=== PATIENT | female | born 1985 | race African-American/Black ===

== ENCOUNTER 2016-06-06 13:11 | Emergency (ER) | payer OTHER ==
[2016-06-06 14:18] VITALS: TEMP 97.3
[2016-06-06] MEDS ORDERED: DICYCLOMINE 10 MG/ML 2 ML AMP IM STA (15:06)
[2016-06-06] MEDS ORDERED: METOCLOPRAMIDE 5 MG/ML 2 ML VIAL IVP STA (15:06)
[2016-06-06] MEDS ORDERED: SODIUM CHLORIDE 0.9% 1,000 ML IV STA (15:06)
--- NOTE | 2016-06-06 15:12 | ED ---
Abdominal Pain HPI - General Chief Complaint: Abdominal Pain Stated Complaint: chest & back pain Time Seen by Provider: 06/06/16 15:00 Source: patient, RN notes reviewed Mode of arrival: ambulatory Limitations: no limitations - History of Present Illness Initial Comments: 30-year-old female presents to the emergency department with a chief complaint of right upper quadrant abdominal pain. Patient states that she has had this pain on and off for multiple months. Patient states that last night she started developing nausea vomiting with the pain is worse than his abdomen before it wraps around her back and up to her shoulder. Patient denies any shortness of breath or chest pain with this pain. Patient states she did have a low-grade fever last night. Patient does admit to nausea vomiting and diarrhea with it as well. Patient states she's only ever been told she had gallstones she's never had an infection. Patient states they've not discussed any surgery with her for her gallbladder at this time. Patient states she was concerned due to the continued pain so she thought that she should be evaluated. Patient denies any recent fever, chills, shortness of breath, chest pain, back pain, numbness or tingling, dysuria or hematuria, constipation, headaches or visual changes, or any other current symptoms. - Related Data Previous Rx's Medication Instructions Recorded Ondansetron Odt [Zofran ODT] 4 mg PO Q8HR PRN #20 tab 06/06/16 Allergies Allergy/AdvReac Type Severity Reaction Status Date / Time No Known Allergies Allergy Verified 06/06/16 15:54 Review of Systems ROS Statement: Those systems with pertinent positive or pertinent negative responses have been documented in the HPI. ROS Other: All systems not noted in ROS Statement are negative. Past Medical History Past Medical History: Asthma, GERD/Reflux, Pneumonia Additional Past Medical History / Comment(s): Chronic back pain , depression, ASTHMA WHEN YOUNGER, BRONCHITIS, HYPOGLYEMIA,DDD, BLEEDING ULCER IN PAST History of Any Multi-Drug Resistant Organisms: None Reported Past Surgical History: Appendectomy, Section Additional Past Surgical History / Comment(s): Additional Past Anesthesia/Blood Transfusion Reaction / Comment(s): CLAUSTERPHOBIC Past Psychological History: Anxiety, Depression Smoking Status: Current every day smoker Past Alcohol Use History: Rare Additional Past Alcohol Use History / Comment(s): STARTED SMOKING AT 26, SMOKES 6-7 CIG PER DAY Past Drug Use History: None Reported, Marijuana Additional Drug Use History / Comment(s): LAST USED 1 WEEK AGO - Past Family History Father Family Medical History: Unable to Obtain Mother Family Medical History: Fibromyalgia, Rheumatoid Arthritis (RA) Additional Family Medical History / Comment(s): DDD, CARPAL TUNNEL. PARATYROID REMOVED General Exam - General Exam Comments Initial Comments: General: The patient is awake and alert, in no distress, and does not appear acutely ill. Eye: Pupils are equal, round and reactive to light, extra-ocular movements are intact; there is normal conjunctiva bilaterally. No signs of icterus. Ears, nose, mouth and throat: There are moist mucous membranes. Neck: The neck is supple, there is no tenderness. Cardiovascular: There is a regular rate and rhythm. No murmur, rub or gallop is appreciated. Respiratory: Lungs are clear to auscultation, respirations are non-labored, breath sounds are equal. No wheezes, stridor, rales, or rhonchi. Gastrointestinal: Soft, non-distended, right upper quadrant tenderness of the abdomen without masses or organomegaly noted. There is no rebound or guarding present. No CVA tenderness. Bowel sounds are unremarkable. Back: There is no tenderness to palpation in the midline. There is no obvious deformity. No rashes noted. Musculoskeletal: Normal ROM, no tenderness, There is no pedal edema. There is no calf tenderness or swelling. Sensation intact. Pulses equal bilaterally 2+. Neurological: CN II-XII intact, There are no obvious motor or sensory deficits. Coordination appears grossly intact. Speech is normal. Skin: Skin is warm and dry and no rashes or lesions are noted. Psychiatric: Cooperative, appropriate mood & affect, normal judgment. Limitations: no limitations Course Vital Signs 06/06/16 06/06/16 14:15 15:12 Temperature 97.3 F L Pulse Rate 86 72 Respiratory 18 15 Rate Blood Pressure 121/73 117/64 O2 Sat by Pulse 98 100 Oximetry Medical Decision Making - Medical Decision Making 30-year-old female presents emergency department chief complaint of right upper quadrant abdominal pain which she has had on and off for years. At this time ultrasound was reviewed as well as laboratory that shows no acute findings. This time patient is tender in the upper quadrant however there is no rebound or guarding. We discussed continued follow-up with her surgeon who she states is Dr. Hardy. We discussed using Zofran as prescribed for pain.. We discussed return parameters. Patient stated that she understood all her questions have been answered. She'll be discharged. - Lab Data Result diagrams: 06/06/16 15:25 06/06/16 15:25 Lab Results 06/06/16 06/06/16 06/06/16 Range/Units 15:25 15:25 15:25 WBC 7.4 (3.8-10.6) k/uL RBC 4.71 (3.80-5.40) m/uL Hgb 13.5 (11.4-16.0) gm/dL Hct 43.1 (34.0-46.0) % MCV 91.6 (80.0-100.0) fL MCH 28.7 (25.0-35.0) pg MCHC 31.4 (31.0-37.0) g/dL RDW 14.6 (11.5-15.5) % Plt Count 213 (150-450) k/uL Neutrophils % 49 % Lymphocytes % 42 % Monocytes % 6 % Eosinophils % 2 % Basophils % 0 % Neutrophils # 3.6 (1.3-7.7) k/uL Lymphocytes # 3.1 (1.0-4.8) k/uL Monocytes # 0.4 (0-1.0) k/uL Eosinophils # 0.1 (0-0.7) k/uL Basophils # 0.0 (0-0.2) k/uL Sodium 143 (137-145) mmol/L Potassium 4.7 (3.5-5.1) mmol/L Chloride 103 (98-107) mmol/L Carbon Dioxide 29 (22-30) mmol/L Anion Gap 11 mmol/L BUN 13 (7-17) mg/dL Creatinine 0.67 (0.52-1.04) mg/dL Est GFR (MDRD) Af Amer >60 (>60 ml/min/1.73 sqM) Est GFR (MDRD) Non-Af >60 (>60 ml/min/1.73 sqM) Glucose 84 (74-99) mg/dL Calcium 9.6 (8.4-10.2) mg/dL Total Bilirubin 0.5 (0.2-1.3) mg/dL AST 37 H (14-36) U/L ALT 37 (9-52) U/L Alkaline Phosphatase 83 (38-126) U/L Total Protein 7.5 (6.3-8.2) g/dL Albumin 4.2 (3.5-5.0) g/dL Urine Color Urine Appearance (Clear) Urine pH (5.0-8.0) Ur Specific [place] (1.001-1.035) Urine Protein (Negative) Urine Glucose (UA) (Negative) Urine Ketones (Negative) Urine Blood (Negative) Urine Nitrate (Negative) Urine Bilirubin (Negative) Urine Urobilinogen (<2.0) mg/dL Ur Leukocyte Esterase (Negative) Urine HCG, Qual Not Detected (Not Detectd) 06/06/16 Range/Units 15:25 WBC (3.8-10.6) k/uL RBC (3.80-5.40) m/uL Hgb (11.4-16.0) gm/dL Hct (34.0-46.0) % MCV (80.0-100.0) fL MCH (25.0-35.0) pg MCHC (31.0-37.0) g/dL RDW (11.5-15.5) % Plt Count (150-450) k/uL Neutrophils % % Lymphocytes % % Monocytes % % Eosinophils % % Basophils % % Neutrophils # (1.3-7.7) k/uL Lymphocytes # (1.0-4.8) k/uL Monocytes # (0-1.0) k/uL Eosinophils # (0-0.7) k/uL Basophils # (0-0.2) k/uL Sodium (137-145) mmol/L Potassium (3.5-5.1) mmol/L Chloride (98-107) mmol/L Carbon Dioxide (22-30) mmol/L Anion Gap mmol/L BUN (7-17) mg/dL Creatinine (0.52-1.04) mg/dL Est GFR (MDRD) Af Amer (>60 ml/min/1.73 sqM) Est GFR (MDRD) Non-Af (>60 ml/min/1.73 sqM) Glucose (74-99) mg/dL Calcium (8.4-10.2) mg/dL Total Bilirubin (0.2-1.3) mg/dL AST (14-36) U/L ALT (9-52) U/L Alkaline Phosphatase (38-126) U/L Total Protein (6.3-8.2) g/dL Albumin (3.5-5.0) g/dL Urine Color Yellow Urine Appearance Clear (Clear) Urine pH 5.5 (5.0-8.0) Ur Specific [place] 1.020 (1.001-1.035) Urine Protein Negative (Negative) Urine Glucose (UA) Negative (Negative) Urine Ketones Negative (Negative) Urine Blood Negative (Negative) Urine Nitrate Negative (Negative) Urine Bilirubin Negative (Negative) Urine Urobilinogen <2.0 (<2.0) mg/dL Ur Leukocyte Esterase Negative (Negative) Urine HCG, Qual (Not Detectd) - Radiology Data Radiology results: report reviewed, image reviewed Disposition Clinical Impression: Biliary colic Disposition: HOME SELF-CARE Condition: Stable Instructions: Biliary Colic (ED) Additional Instructions: Please use medication as discussed. Please follow up with family doctor if symptoms have not improved over the next two days. Please return to the emergency room if your symptoms increase or worsen or for any other concerns. Prescriptions: Ondansetron Odt [Zofran ODT] 4 mg PO Q8HR PRN #20 tab PRN Reason: Nausea Referrals: Kadi Hart MD [STAFF PHYSICIAN] - 1-2 days Time of Disposition: 16:44
[2016-06-06 15:47] LABS: Appearance,Urine Clear (Clear); Basophils % (A) 0 %; Bilirubin,Urine Negative (Negative); CH 29.8; CHCM 32.7; Eosinophils # (A) 0.1 k/uL (0-0.7); Eosinophils % (A) 2 %; Glucose,Urine (UA) Negative (Negative); HCT 43.1 % (34.0-46.0); HDW 2.04; HGB 13.5 gm/dL (11.4-16.0); Ketones,Urine Negative (Negative); Leukocyte Esterase,Urine Negative (Negative); Luc # (Auto) 0.11; Luc % (Auto) 2; Lymphocytes # (A) 3.1 k/uL (1.0-4.8); Lymphocytes % (A) 42 %; MCH 28.7 pg (25.0-35.0); MCHC 31.4 g/dL (31.0-37.0); MCV 91.6 fL (80.0-100.0); Mean Platelet Volume 8.8; Monocytes # (A) 0.4 k/uL (0-1.0); Monocytes % (A) 6 %; Neutrophils # (A) 3.6 k/uL (1.3-7.7); Neutrophils % (A) 49 %; Nitrite,Urine Negative (Negative); PH, Urine 5.5 (5.0-8.0); Protein,Urine Negative (Negative); RBC 4.71 m/uL (3.80-5.40); RDW 14.6 % (11.5-15.5); UA Billing (MACRO vs. MICRO) CHEM; Urobilinogen,Urine <2.0 mg/dL (<2.0); WBC 7.4 k/uL (3.8-10.6); WBC (Perox) 7.28
--- NOTE | 2016-06-06 15:48 | XR ---
EXAMINATION TYPE: XR abdomen 2V DATE OF EXAM: 06/06/2016 3:44 PM CLINICAL HISTORY: Right-sided abdominal pain with vomiting. TECHNIQUE: Supine and upright views of the abdomen are obtained. COMPARISON: CT abdomen and pelvis July 23, 2014 FINDINGS: Scattered gas is seen in non-distended small bowel loops. Gas and fecal material is seen in non-distended colon and rectum. Surgical clips right lower quadrant likely related to appendectomy are redemonstrated. Metallic IUD overlies the lower pelvis. Spina bifida defect S1 level is present. No pneumoperitoneum is identified. Lung bases are clear. IMPRESSION: Overall nonobstructive bowel gas pattern.
[2016-06-06 16:02] LABS: AST 37 U/L (14-36); Alkaline Phosphatase 83 U/L (38-126); Anion Gap 11 mmol/L; Blood Urea Nitrogen 13 mg/dL (7-17); Calcium 9.6 mg/dL (8.4-10.2); Carbon Dioxide 29 mmol/L (22-30); Chloride 103 mmol/L (98-107); Glucose 84 mg/dL (74-99); Non-African American GFR(MDRD) >60 (>60 ml/min/1.73 sqM); Potassium 4.7 mmol/L (3.5-5.1); Sodium 143 mmol/L (137-145); Total Bilirubin 0.5 mg/dL (0.2-1.3); Total Protein 7.5 g/dL (6.3-8.2)
[2016-06-06 16:08] LABS: ALT 37 U/L (9-52)
--- NOTE | 2016-06-06 16:36 | US ---
EXAMINATION TYPE: US gallbladder DATE OF EXAM: 06/06/2016 4:21 PM COMPARISON: 07/01/2014 CLINICAL HISTORY: 30-year-old female history is confusing, she states she had with gallbladder stones here 2 years ago and recently at [facility] [place] they [place] gb stone but supposedly Dr Kadi tomlinson can find no record of scan at other facility. Abdominal pain. TECHNIQUE: Multiple sonographic images of the right upper quadrant were obtained. FINDINGS: TECHNOLOGIST NOTES:large body habitus with overlying bowel gas. Liver Length: 15.8cm Gallbladder Wall: 0.3cm CBD: 0.5cm Right Kidney: 9.6 x 4.6 x 4.9cm Pancreas: Suboptimal visualization secondary to shadowing from bowel gas. Liver: Attenuating, possibly due to fatty infiltration. This secondarily limits assessment for focal lesion. Gallbladder: No abnormal gallbladder distention, wall thickening, pericholecystic fluid, or shadowin g calculi. Evidence for sonographic Trevino's sign: yes CBD: Within normal limits. Right Kidney: No hydronephrosis. IMPRESSION: 1. No evidence for cholelithiasis or ancillary imaging findings to suggest acute cholecystitis. 2. However, we note a positive sonographic Trevino sign. If further imaging evaluation of the gallblad daniel is desired, HIDA scan with ejection fraction can be performed. 3. Otherwise, the positive Trevino's sign could reflect referred pain such as from the liver which bel ears steatotic. Correlate with LFTs, lipid profile, and patient risk factors.
[2016-06-06] MEDS ORDERED: KETOROLAC 30 MG/ML 1 ML VIAL IVP STA (16:44)
[2016-06-06 17:11] VITALS: BP 110/61; PULSE 88; RESP 18
== END 2016-06-06 17:10 | disposition home or self-care (01) ==
LOC: EC 13:11
DX: R10.84 Generalized abdominal pain (principal); F17.210 Nicotine dependence, cigarettes, uncomplicated
CPT/HCPCS: 99284; 96372; 96361 ×2; 96375; 96374; 36415; 93005; 80053; 85025; 81003; 81025; 87040; 74020; 76705; J0500; J2765; J1885

== ENCOUNTER 2016-08-15 07:36 | Emergency (ER) | payer OTHER ==
[2016-08-15] MEDS ORDERED: HYDROmorphone 1 MG/ML 1 ML SYRINGE IVP STA ×2 (08:35→09:29)
[2016-08-15] MEDS ORDERED: ONDANSETRON 4 MG/2 ML VIAL IVP STA ×2 (08:35→09:29)
[2016-08-15 08:39] LABS: Appearance,Urine Clear (Clear); Bilirubin,Urine Negative (Negative); Glucose,Urine (UA) Negative (Negative); Ketones,Urine Negative (Negative); Leukocyte Esterase,Urine Negative (Negative); Nitrite,Urine Negative (Negative); PH, Urine 5.5 (5.0-8.0); Protein,Urine Trace (Negative); Specific Gravity,Urine 1.024 (1.001-1.035); UA Billing (MACRO vs. MICRO) CHEM; Urobilinogen,Urine <2.0 mg/dL (<2.0)
[2016-08-15 08:40] LABS: Basophils % (A) 0 %; CH 29.8; Eosinophils # (A) 0.1 k/uL (0-0.7); Eosinophils % (A) 1 %; HCT 47.6 % (34.0-46.0); HDW 2.01; HGB 15.1 gm/dL (11.4-16.0); Luc # (Auto) 0.08; Luc % (Auto) 1; Lymphocytes # (A) 1.3 k/uL (1.0-4.8); Lymphocytes % (A) 12 %; MCH 29.6 pg (25.0-35.0); MCHC 31.8 g/dL (31.0-37.0); MCV 93.3 fL (80.0-100.0); Mean Platelet Volume 8.9; Monocytes # (A) 0.4 k/uL (0-1.0); Monocytes % (A) 4 %; Neutrophils # (A) 9.1 k/uL (1.3-7.7); Neutrophils % (A) 83 %; RDW 13.8 % (11.5-15.5)
--- NOTE | 2016-08-15 08:41 | ED ---
Nausea/Vomiting/Diarrhea HPI - General Chief complaint: Nausea/Vomiting/Diarrhea Stated complaint: vomiting Time Seen by Provider: 08/15/16 08:10 Source: patient, RN notes reviewed Mode of arrival: ambulatory Limitations: no limitations - History of Present Illness Initial comments: Patient is a 30-year-old female presents to the emergency room for evaluation of abdominal pain, nausea and vomiting. Patient states she woke up at 4:30 this morning with abdominal pain and vomiting. Patient states she hasn't been able to stop since. Patient states over the past 3 weeks she's not been having much of an appetite. Patient denies following up with her primary care provider. Patient states she is not a primary care provider at this time. Patient states that she has a history of section and appendectomy. Patient states back in April she went to [facility] and they told her that she had gallstones. Patient states that she follow up with Dr. Bolivar and they did not find any gallstones. Patient states pain worsened today. Patient also states she had a few episodes of diarrhea this morning. Patient denies fevers or chills. Patient denies headache or dizziness. Patient denies chest pain or shortness of breath. Patient states she's feeling very nauseous. - Related Data Previous Rx's Medication Instructions Recorded Ondansetron Odt [Zofran Odt] 4 mg PO Q8HR PRN #12 tab 08/15/16 Allergies Allergy/AdvReac Type Severity Reaction Status Date / Time morphine AdvReac Nausea & Verified 08/15/16 08:10 Vomiting Review of Systems ROS Statement: Those systems with pertinent positive or pertinent negative responses have been documented in the HPI. ROS Other: All systems not noted in ROS Statement are negative. Past Medical History Past Medical History: Asthma, GERD/Reflux, Pneumonia Additional Past Medical History / Comment(s): Chronic back pain , depression, ASTHMA WHEN YOUNGER, BRONCHITIS, HYPOGLYEMIA,DDD, BLEEDING ULCER IN PAST History of Any Multi-Drug Resistant Organisms: None Reported Past Surgical History: Appendectomy, Section Additional Past Surgical History / Comment(s): Additional Past Anesthesia/Blood Transfusion Reaction / Comment(s): CLAUSTERPHOBIC Past Psychological History: Anxiety, Depression Smoking Status: Current every day smoker Past Alcohol Use History: Rare Additional Past Alcohol Use History / Comment(s): STARTED SMOKING AT 26, SMOKES 6-7 CIG PER DAY Past Drug Use History: None Reported, Marijuana Additional Drug Use History / Comment(s): LAST USED 1 WEEK AGO - Past Family History Father Family Medical History: Unable to Obtain Mother Family Medical History: Fibromyalgia, Rheumatoid Arthritis (RA) Additional Family Medical History / Comment(s): DDD, CARPAL TUNNEL. PARATYROID REMOVED General Exam - General Exam Comments Initial Comments: Actively vomiting. Limitations: no limitations General appearance: alert Head exam: Present: atraumatic, normocephalic, normal inspection Eye exam: Present: normal appearance ENT exam: Present: normal exam Neck exam: Present: normal inspection Respiratory exam: Present: normal lung sounds bilaterally. Absent: respiratory distress Cardiovascular Exam: Present: regular rate, normal rhythm, normal heart sounds GI/Abdominal exam: Present: soft, tenderness (Upper midepigastric and right upper quadrant), normal bowel sounds. Absent: distended, guarding, rebound, rigid Extremities exam: Present: normal inspection Back exam: Present: normal inspection Neurological exam: Present: alert, oriented X3, CN II-XII intact, normal gait Psychiatric exam: Present: normal affect, normal mood Skin exam: Present: warm, dry, intact, normal color. Absent: rash Course Vital Signs 08/15/16 08/15/16 07:41 11:48 Temperature 98.5 F 98 F Pulse Rate 80 81 Respiratory 20 16 Rate Blood Pressure 123/67 128/78 O2 Sat by Pulse 98 98 Oximetry Medical Decision Making - Medical Decision Making Patient is a 30-year-old female presents emergency room for evaluation of abdominal pain, nausea, vomiting. White count slightly elevated. Labs show no significant findings. Ultrasound shows no acute findings. Patient states she is feeling better after medications given. Discussed patient to follow up GI specialist for further evaluation. Patient states she understands everything that was discussed with her. Return parameters discussed. Case discussed with Dr. Jorge. - Lab Data Result diagrams: 08/15/16 08:05 08/15/16 08:05 Lab Results 08/15/16 08/15/16 08/15/16 Range/Units 08:05 08:05 08:05 WBC 11.0 H (3.8-10.6) k/uL RBC 5.10 (3.80-5.40) m/uL Hgb 15.1 (11.4-16.0) gm/dL Hct 47.6 H (34.0-46.0) % MCV 93.3 (80.0-100.0) fL MCH 29.6 (25.0-35.0) pg MCHC 31.8 (31.0-37.0) g/dL RDW 13.8 (11.5-15.5) % Plt Count 217 (150-450) k/uL Neutrophils % 83 % Lymphocytes % 12 % Monocytes % 4 % Eosinophils % 1 % Basophils % 0 % Neutrophils # 9.1 H (1.3-7.7) k/uL Lymphocytes # 1.3 (1.0-4.8) k/uL Monocytes # 0.4 (0-1.0) k/uL Eosinophils # 0.1 (0-0.7) k/uL Basophils # 0.0 (0-0.2) k/uL Sodium 143 (137-145) mmol/L Potassium 4.6 (3.5-5.1) mmol/L Chloride 105 (98-107) mmol/L Carbon Dioxide 28 (22-30) mmol/L Anion Gap 10 mmol/L BUN 16 (7-17) mg/dL Creatinine 0.65 (0.52-1.04) mg/dL Est GFR (MDRD) Af Amer >60 (>60 ml/min/1.73 sqM) Est GFR (MDRD) Non-Af >60 (>60 ml/min/1.73 sqM) Glucose 90 (74-99) mg/dL Calcium 9.5 (8.4-10.2) mg/dL Magnesium 1.7 (1.6-2.3) mg/dL Total Bilirubin 0.8 (0.2-1.3) mg/dL AST 40 H (14-36) U/L ALT 36 (9-52) U/L Alkaline Phosphatase 82 (38-126) U/L Total Protein 7.8 (6.3-8.2) g/dL Albumin 4.3 (3.5-5.0) g/dL Amylase 115 H (30-110) U/L Lipase 124 (23-300) U/L Urine Color Urine Appearance (Clear) Urine pH (5.0-8.0) Ur Specific [place] (1.001-1.035) Urine Protein (Negative) Urine Glucose (UA) (Negative) Urine Ketones (Negative) Urine Blood (Negative) Urine Nitrite (Negative) Urine Bilirubin (Negative) Urine Urobilinogen (<2.0) mg/dL Ur Leukocyte Esterase (Negative) Urine HCG, Qual Not Detected (Not Detectd) 08/15/16 Range/Units 08:05 WBC (3.8-10.6) k/uL RBC (3.80-5.40) m/uL Hgb (11.4-16.0) gm/dL Hct (34.0-46.0) % MCV (80.0-100.0) fL MCH (25.0-35.0) pg MCHC (31.0-37.0) g/dL RDW (11.5-15.5) % Plt Count (150-450) k/uL Neutrophils % % Lymphocytes % % Monocytes % % Eosinophils % % Basophils % % Neutrophils # (1.3-7.7) k/uL Lymphocytes # (1.0-4.8) k/uL Monocytes # (0-1.0) k/uL Eosinophils # (0-0.7) k/uL Basophils # (0-0.2) k/uL Sodium (137-145) mmol/L Potassium (3.5-5.1) mmol/L Chloride (98-107) mmol/L Carbon Dioxide (22-30) mmol/L Anion Gap mmol/L BUN (7-17) mg/dL Creatinine (0.52-1.04) mg/dL Est GFR (MDRD) Af Amer (>60 ml/min/1.73 sqM) Est GFR (MDRD) Non-Af (>60 ml/min/1.73 sqM) Glucose (74-99) mg/dL Calcium (8.4-10.2) mg/dL Magnesium (1.6-2.3) mg/dL Total Bilirubin (0.2-1.3) mg/dL AST (14-36) U/L ALT (9-52) U/L Alkaline Phosphatase (38-126) U/L Total Protein (6.3-8.2) g/dL Albumin (3.5-5.0) g/dL Amylase (30-110) U/L Lipase (23-300) U/L Urine Color Yellow Urine Appearance Clear (Clear) Urine pH 5.5 (5.0-8.0) Ur Specific [place] 1.024 (1.001-1.035) Urine Protein Trace H (Negative) Urine Glucose (UA) Negative (Negative) Urine Ketones Negative (Negative) Urine Blood Negative (Negative) Urine Nitrite Negative (Negative) Urine Bilirubin Negative (Negative) Urine Urobilinogen <2.0 (<2.0) mg/dL Ur Leukocyte Esterase Negative (Negative) Urine HCG, Qual (Not Detectd) - Radiology Data Radiology results: report reviewed, image reviewed Disposition Clinical Impression: Abdominal pain, Nausea vomiting and diarrhea Disposition: HOME SELF-CARE Condition: Good Instructions: Acute Nausea and Vomiting (ED) Additional Instructions: Take Zofran as needed for nausea. Drink plenty of fluids. Please follow up with primary care provider in 1-2 days. If any new symptom arises or symptoms worsen, return to ER as soon as possible. Prescriptions: Ondansetron Odt [Zofran Odt] 4 mg PO Q8HR PRN #12 tab PRN Reason: Nausea Referrals: None,Stated [Primary Care Provider] - 1-2 days Reina Vadlez MD [STAFF PHYSICIAN] - 1-2 days Time of Disposition: 11:36
[2016-08-15 08:53] LABS: ALT 36 U/L (9-52); AST 40 U/L (14-36); Alkaline Phosphatase 82 U/L (38-126); Amylase 115 U/L (30-110); Anion Gap 10 mmol/L; Blood Urea Nitrogen 16 mg/dL (7-17); Calcium 9.5 mg/dL (8.4-10.2); Carbon Dioxide 28 mmol/L (22-30); Chloride 105 mmol/L (98-107); Glucose 90 mg/dL (74-99); Magnesium 1.7 mg/dL (1.6-2.3); Non-African American GFR(MDRD) >60 (>60 ml/min/1.73 sqM); Potassium 4.6 mmol/L (3.5-5.1); Sodium 143 mmol/L (137-145); Total Bilirubin 0.8 mg/dL (0.2-1.3); Total Protein 7.8 g/dL (6.3-8.2)
[2016-08-15] MEDS ORDERED: SODIUM CHLORIDE 0.9% 1,000 ML IV ONE (09:29)
[2016-08-15] MEDS ORDERED: KETOROLAC 30 MG/ML 1 ML VIAL IVP STA (09:29)
--- NOTE | 2016-08-15 10:12 | US ---
EXAMINATION TYPE: US abdomen limited DATE OF EXAM: 08/15/2016 10:04 AM COMPARISON: NONE CLINICAL HISTORY: Pain. epigastric pain, patient believes she has gallstones from an US at another in [facility]. EXAM MEASUREMENTS: Liver Length: 13.8 cm Gallbladder Wall: 0.2 cm CBD: 0.2 cm Right Kidney: 11.4 x 5.1 x 5.6 cm Pancreas: visualized portions wnl Liver: wnl Gallbladder: No stones seen Evidence for sonographic Trevino's sign: Yes CBD: wnl Right Kidney: No hydronephrosis or masses seen IMPRESSION: No distinct abnormality appreciated.
[2016-08-15] MEDS ORDERED: METOCLOPRAMIDE 5 MG/ML 2 ML VIAL IVP STA (10:43)
[2016-08-15] MEDS ORDERED: ACETAMINOPHEN IV (For NPO) 1,000 MG in EMPTY BAG 1 BAG IVPB STA (10:43)
--- NOTE | 2016-08-15 10:49 | XR ---
EXAMINATION TYPE: XR KUB DATE OF EXAM: 08/15/2016 10:39 AM COMPARISON: 7-15 HISTORY: Pain TECHNIQUE: Single supine KUB image of the abdomen is obtained FINDINGS: Small bowel demonstrates no evidence for dilatation or air fluid levels. Gas and fecal material is seen in non-distended colon. No convincing evidence for pneumoperitoneum. No unusual calcifications. The lung bases are clear. The osseous structures are intact. IUD is unchanged in position. IMPRESSION: 1. Overall nonobstructive bowel gas pattern.
[2016-08-15 11:49] VITALS: BP 128/78; PULSE 81; RESP 16; TEMP 98
== END 2016-08-15 11:52 | disposition home or self-care (01) ==
LOC: EC 07:36
DX: R11.2 Nausea with vomiting, unspecified (principal); R19.7 Diarrhea, unspecified; R10.13 Epigastric pain; R10.11 Right upper quadrant pain; D72.829 Elevated white blood cell count, unspecified; F17.210 Nicotine dependence, cigarettes, uncomplicated; Z88.5 Allergy status to narcotic agent; Z90.49 Acquired absence of other specified parts of digestive tract; Z98.890 Other specified postprocedural states
CPT/HCPCS: 99284 ×2; 96365 ×2; 96375 ×5; 96376 ×3; 96361 ×2; 36415; 80053; 82150; 83690; 83735; 85025; 81003; 81025; 74000; 76705; J2765; J2405; J1885; J1170; J0131

== ENCOUNTER 2017-03-07 15:28 | Emergency (ER) | payer OTHER ==
[2017-03-07 15:58] VITALS: RESP 18
[2017-03-07] MEDS ORDERED: HYDROmorphone 1 MG/ML 1 ML SYRINGE IM STA (16:32)
[2017-03-07] MEDS ORDERED: ONDANSETRON 4 MG TAB PO STA (16:34)
--- NOTE | 2017-03-07 17:05 | ED ---
General Adult HPI - General Chief complaint: Headache Stated complaint: Mirgraine Time Seen by Provider: 03/07/17 16:09 Source: patient, family, RN notes reviewed, old records reviewed Mode of arrival: ambulatory - History of Present Illness Initial comments: Chief complaint history of present illness a 31-year-old female with complaint of headache. Associated with photophobia nausea and vomiting. No fever. Patient has a history of migraines. - Related Data Previous Rx's Medication Instructions Recorded Butalb/Acetaminophen/Caffeine 1 cap PO Q4HR #20 cap 03/07/17 [Fioricet 50-300-40 mg Capsule] Ondansetron Odt [Zofran Odt] 4 mg PO Q8HR PRN #10 tab 03/07/17 Allergies Allergy/AdvReac Type Severity Reaction Status Date / Time morphine AdvReac Nausea & Verified 03/07/17 16:23 Vomiting Review of Systems ROS Statement: Those systems with pertinent positive or pertinent negative responses have been documented in the HPI. Patient reports that she has headache. Made worse by sounds, light and smells. Patient reports she's had these headaches approximately every 3 months. Denies any head injuries. Denies any fever. No runny no sore throat chest pain or shortness of breath. No neuro deficits. All systems were reviewed. Past medical problems significant for asthma, GERD, pneumonia, chronic back pain and migraines. Surgeries appendectomy, . Family history Grandfather colon cancer. Patient was reminded that she to should have colonoscopies and discussed this with the family physician. She also has a history of anxiety and depression. She's not currently taking any medications for this. Patient smokes daily strongly advised to decrease or quit. Drinks alcohol socially. Uses marijuana. ROS Other: All systems not noted in ROS Statement are negative. Past Medical History Past Medical History: Asthma, GERD/Reflux, Pneumonia Additional Past Medical History / Comment(s): Chronic back pain , depression, ASTHMA WHEN YOUNGER, BRONCHITIS, HYPOGLYEMIA,DDD, BLEEDING ULCER IN PAST History of Any Multi-Drug Resistant Organisms: None Reported Past Surgical History: Appendectomy, Section Additional Past Surgical History / Comment(s): Additional Past Anesthesia/Blood Transfusion Reaction / Comment(s): CLAUSTERPHOBIC Past Psychological History: Anxiety, Depression Smoking Status: Current every day smoker Past Alcohol Use History: Rare Past Drug Use History: None Reported, Marijuana - Past Family History Father Family Medical History: Unable to Obtain Mother Family Medical History: Fibromyalgia, Rheumatoid Arthritis (RA) Additional Family Medical History / Comment(s): DDD, CARPAL TUNNEL. PARATYROID REMOVED General Exam - General Exam Comments Initial Comments: General: The patient is awake and alert, complaining of migrainous type headache with photophobia nausea and vomiting for 2 half days. No fevers. Vital signs temperature 90.0 pulse 65 respiratory rate 18 pulse ox on percent room air blood pressure 135/77 Eye: Pupils are equal, round and reactive to light, extra-ocular movements are intact ; there is normal conjunctiva bilaterally. No signs of icterus. Patient complains of photophobia. Ears, nose, mouth and throat: There are moist mucous membranes and no oral lesions. Neck: The neck is supple, discomfort to the right trapezius muscle. No rashes noted. Early shingles was discussed. Discomfort increases with stretching the trapezius muscle on that side. Cardiovascular: There is a regular rate and rhythm. No murmur, rub or gallop is appreciated. Respiratory: Lungs are clear to auscultation, respirations are non-labored, breath sounds are equal. No wheezes, stridor, rales, or rhonchi. Gastrointestinal: Soft, non-distended, non-tender abdomen without masses or organomegaly noted. There is no rebound or guarding present. No CVA tenderness. Bowel sounds are unremarkable. Back: There is no tenderness to palpation in the midline. There is no obvious deformity. No rashes noted. Musculoskeletal: Normal ROM, no tenderness, There is no pedal edema. There is no calf tenderness or swelling. Sensation intact. Pulses equal bilaterally 2+. Neurological: CN II-XII intact, There are no obvious motor or sensory deficits. Coordination appears grossly intact. Speech is normal. No focal or lateralizing findings Skin: Skin is warm and dry and no rashes or lesions are noted. Psychiatric: Cooperative, appropriate mood & affect, normal judgment. No complaints depression though she does have a history of anxiety and depression. Not taking any medications now because it made her feel worse. Course Vital Signs 03/07/17 15:55 Temperature 98 F Pulse Rate 65 Respiratory 18 Rate Blood Pressure 135/77 O2 Sat by Pulse 100 Oximetry Medical Decision Making - Medical Decision Making Patient has a history of migraines and fibromyalgia. CT the brain and cervical spine was done and reviewed by radiologist entire report was reviewed the radiologist's final impression is #1 there is no acute fracture dislocation evident in the cervical spine. #2 no acute intracranial hemorrhage, mass effect, or midline shift seen. #3 straightening of the usual cervical lordosis that may be related to the patient's positioning or muscular spasm. Number for incidentally noted low-lying cerebellar tonsils without herniation or Chiari malformation. As read by Dr. Edouard Patient received Dilaudid 1 mg IM and Zofran 4 mg by mouth. She reports her nausea is controlled. She still having discomfort I photophobia. Had the patient flex her neck with her chin to her chest that did not change the character or increase the discomfort to her headache. She will be given Toradol 30 IM. She does have a history of fibromyalgia. She states the muscle on the right side of the neck is causing discomfort. Patient states she is feeling better after the Toradol shot. We did discuss her going home she is comfortable with that. No evidence of any meningeal irritation or meningismus. The patient be advised to try Fioricet one tablet every 4-6 hours for headache in conjunction with a cold compress to forehead and trying to rest. She'll also be with a prescription for Zofran to control nausea and vomiting. She'll be given the name of a family doctor for follow-up with. Patient was told return emergency room if she has any changes in the nature of her headache or pain. Disposition Clinical Impression: Tension type headache Disposition: HOME SELF-CARE Condition: Fair Instructions: Tension Headache (ED) Additional Instructions: Take Fioricet 1 every 4-6 hours for headache along with Zofran for nausea vomiting. Follow-up with your family physician if you don't have family physician follow-up with Dr. Augustine Prescriptions: Butalb/Acetaminophen/Caffeine [Fioricet 50-300-40 mg Capsule] 1 cap PO Q4HR #20 cap Ondansetron Odt [Zofran Odt] 4 mg PO Q8HR PRN #10 tab PRN Reason: Nausea Referrals: None,Stated [Primary Care Provider] - 1-2 days Time of Disposition: 18:32
--- NOTE | 2017-03-07 17:19 | CT ---
EXAMINATION TYPE: CT brain luisa wo con DATE OF EXAM: 03/07/2017 COMPARISON: 01/24/2015 HISTORY: BELL with neck pain x2 days. CT DLP: 1328.4 mGycm. Automated Exposure Control for Dose Reduction was Utilized. TECHNIQUE: CT scan of the head and cervical spine are performed without contrast. FINDINGS: There is no acute intracranial hemorrhage, mass effect, or midline shift identified. The ventricles and sulci are within normal limits in size. The globes are intact and the visualized sin uses are clear. Cerebellar tonsils are incidentally noted to be low-lying without other evidence of C hiari malformation, unchanged from the exam of 01/24/2015. Cervical spine is visualized in its entirety from C1 through upper thoracic levels and demonstrates s atisfactory alignment without evidence of acute fracture or dislocation. Prevertebral soft tissue ap pears within normal limits. The C1-C2 articulation is unremarkable. Straightening of the usual cerv ical lordosis is present. IMPRESSION: 1. There is no acute fracture or dislocation evident in the cervical spine. 2. No acute intracranial hemorrhage, mass effect, or midline shift is seen. 3. Straightening of the usual cervical lordosis that may relate to patient positioning or muscular sp asm. 4. Incidentally noted low-lying cerebellar tonsils without herniation or Chiari malformation.
[2017-03-07] MEDS ORDERED: KETOROLAC 30 MG/ML 1 ML VIAL IM STA (17:31)
[2017-03-07] MEDS ORDERED: BUTALB/APAP/CAFF 50-325-40MG TAB PO STA (18:30)
[2017-03-07 18:31] VITALS: BP 131/80; PULSE 69; TEMP 98
== END 2017-03-07 18:38 | disposition home or self-care (01) ==
LOC: EC 15:28
DX: G44.209 Tension-type headache, unspecified, not intractable (principal); R11.2 Nausea with vomiting, unspecified; M79.7 Fibromyalgia; F17.200 Nicotine dependence, unspecified, uncomplicated; Z88.5 Allergy status to narcotic agent; Z86.69 Personal history of other diseases of the nervous system and sense organs
CPT/HCPCS: 99284 ×2; 96372 ×3; 72125; 70450; J1885; J1170

== ENCOUNTER 2019-09-10 11:58 | Emergency (ER) | payer OTHER ==
[2019-09-10 12:04] VITALS: RESP 18
[2019-09-10] MEDS ORDERED: METOCLOPRAMIDE 5 MG/ML 2 ML VIAL IVP STA (12:22)
[2019-09-10] MEDS ORDERED: MORPHINE SULFATE 4 MG/ML SYRINGE IV STA (12:24)
[2019-09-10 13:00] LABS: Basophils % (A) 0 %; Eosinophils # (A) 0.6 k/uL (0-0.7); Eosinophils % (A) 6 %; HCT 45.6 % (34.0-46.0); HGB 14.3 gm/dL (11.4-16.0); Lymphocytes # (A) 1.1 k/uL (1.0-4.8); Lymphocytes % (A) 12 %; MCH 29.8 pg (25.0-35.0); MCHC 31.4 g/dL (31.0-37.0); MCV 94.9 fL (80.0-100.0); Mean Platelet Volume 9.4; Monocytes # (A) 0.5 k/uL (0-1.0); Monocytes % (A) 5 %; Neutrophils # (A) 7.3 k/uL (1.3-7.7); Neutrophils % (A) 76 %; Platelet Count 233 k/uL (150-450); RBC 4.81 m/uL (3.80-5.40); RDW 13.7 % (11.5-15.5); WBC 9.6 k/uL (3.8-10.6)
[2019-09-10 13:03] LABS: Appearance,Urine Clear (Clear); Bacteria,Urine Rare /hpf; Bilirubin,Urine Negative (Negative); Blood,Urine Moderate (Negative); Color,Urine Yellow; Glucose,Urine (UA) Negative (Negative); Ketones,Urine Negative (Negative); Leukocyte Esterase,Urine Negative (Negative); Mucus,Urine Rare /hpf; Nitrite,Urine Negative (Negative); PH, Urine 5.5 (5.0-8.0); Protein,Urine Negative (Negative); RBC,Urine 22 /hpf (0-5); Squamous Epithelial Cell,Urine 1 /hpf (0-4); Urobilinogen,Urine <2.0 mg/dL (<2.0); WBC,Urine 2 /hpf (0-5)
[2019-09-10 13:10] LABS: ALT 19 U/L (4-34); AST 30 U/L (14-36); African American GFR (CKD) >90 (>60 ml/min/1.73 sqM); Albumin 3.5 g/dL (3.5-5.0); Alkaline Phosphatase 78 U/L (38-126); Anion Gap 5 mmol/L; Blood Urea Nitrogen 9 mg/dL (7-17); Calcium 8.9 mg/dL (8.4-10.2); Carbon Dioxide 28 mmol/L (22-30); Chloride 105 mmol/L (98-107); Glucose 91 mg/dL (74-99); Non-African American GFR(CKD) >90 (>60 ml/min/1.73 sqM); Potassium 4.2 mmol/L (3.5-5.1); Sodium 138 mmol/L (137-145); Total Bilirubin 0.7 mg/dL (0.2-1.3); Total Protein 6.2 g/dL (6.3-8.2)
--- NOTE | 2019-09-10 13:19 | ED ---
General Adult HPI - General Chief complaint: Abdominal Pain Stated complaint: vomiting/gall bladder issues Time Seen by Provider: 09/10/19 12:08 Source: patient, RN notes reviewed, old records reviewed Mode of arrival: wheelchair Limitations: no limitations - History of Present Illness Initial comments: 33-year-old female patient past history significant for gallstones sensitivity for chief complaint of right upper quadrant abdominal pain, nausea vomiting, waxing and waning diarrhea. Patient reports has been ongoing for the last 2 weeks. Patient does believe that this is her gallbladder causing her symptoms. She denies any upper respiratory symptoms. Denies any chest of being . Denies any other complaints. Systemic: Pt denies fatigue, fever/chills, rash. Pt denies weakness, night sweats, weight loss. Neuro: Pt denies headache, visual disturbances, syncope or pre-syncope. HEENT: Pt denies ocular discharge or irritation, otalgia, rhinorrhea, pharyngitis or notable lymphadenopathy. Cardiopulmonary: Pt denies chest pain, SOB, heart palpitations, dyspnea on exertion. : Pt denies dysuria, burning w/ urination, frequency/urgency. Denies new onset urinary or bowel incontinence. MSK: Pt denies myalgia, loss of strength or function in extremities. Neuro: Pt denies new onset weakness, paresthesias. - Related Data Home Medications Medication Instructions Recorded Confirmed Albuterol Inhaler [Ventolin Hfa 2 puff INHALATION RT-Q6H PRN 09/10/19 09/10/19 Inhaler] DULoxetine HCL [Cymbalta] 30 mg PO DAILY 09/10/19 09/10/19 Ergocalciferol (Vitamin D2) 50,000 unit PO WE 09/10/19 09/10/19 [Drisdol] Loratadine 10 mg PO DAILY 09/10/19 09/10/19 Omeprazole [PriLOSEC] 20 mg PO DAILY 09/10/19 09/10/19 Previous Rx's Medication Instructions Recorded Ondansetron Odt [Zofran Odt] 4 mg PO Q8HR PRN #10 tab 03/07/17 Allergies Allergy/AdvReac Type Severity Reaction Status Date / Time morphine AdvReac Nausea & Verified 09/10/19 15:00 Vomiting Review of Systems ROS Statement: Those systems with pertinent positive or pertinent negative responses have been documented in the HPI. ROS Other: All systems not noted in ROS Statement are negative. Past Medical History Past Medical History: Asthma, GERD/Reflux, Pneumonia Additional Past Medical History / Comment(s): Chronic back pain , depression, ASTHMA WHEN YOUNGER, BRONCHITIS, HYPOGLYEMIA,DDD, BLEEDING ULCER IN PAST History of Any Multi-Drug Resistant Organisms: None Reported Past Surgical History: Appendectomy, Section Additional Past Surgical History / Comment(s): Additional Past Anesthesia/Blood Transfusion Reaction / Comment(s): CLAUSTERPHOBIC Past Psychological History: Anxiety, Depression Smoking Status: Current every day smoker Past Alcohol Use History: Rare Past Drug Use History: Marijuana - Past Family History Father Family Medical History: Unable to Obtain Mother Family Medical History: Fibromyalgia, Rheumatoid Arthritis (RA) Additional Family Medical History / Comment(s): DDD, CARPAL TUNNEL. PARATYROID REMOVED General Exam - General Exam Comments Initial Comments: Constitutional: NAD, AOX3, Pt has pleasant affect. HEENT: NC/AT, trachea midline, neck supple, no lymphadenopathy. Posterior pharynx non erythematous, without exudates. External ears appear normal, without discharge. Mucous membranes moist. Eyes PERRLA, EOM intact. There is no scleral icterus. No pallor noted. Cardiopulmonary: RRR, no murmurs, rubs or gallops, no JVD noted. Lungs CTAB in anterior and posterior ha. No peripheral edema. Abdominal exam: Abdomen soft and non-distended. Abdomen moderately tender to palpation right upper quadrant region.. Bowel sounds active in LLQ. No hepatosplenomegaly. No ecchymosis Neuro: CN II-XII grossly intact. No nuchal rigidity. No raccon eyes, no lu sign, no hemotympanum. No cervical spinal tenderness. MSK: No posterior calf tenderness bilaterally, homans sign negative bilaterally. Posterior tibialis and radial pulse +2 bilaterally. Sensation intact in upper and lower extremities. Full active ROM in upper and lower extremities, 5/5 stregnth. Limitations: no limitations Course Vital Signs 09/10/19 12:00 Temperature 98.0 F Pulse Rate 66 Respiratory 18 Rate Blood Pressure 136/94 O2 Sat by Pulse 99 Oximetry Medical Decision Making - Medical Decision Making 33-year-old female patient past history significant for gallstones sensitivity for chief complaint of right upper quadrant abdominal pain, nausea vomiting, waxing and waning diarrhea. Patient reports has been ongoing for the last 2 weeks. Patient does believe that this is her gallbladder causing her symptoms. She denies any upper respiratory symptoms. Denies any chest of being . Denies any other complaints. Patient vital signs are stable, afebrile. Physical exam displayed right upper quadrant tenderness. Laboratory investigations were obtained overall nontoxic. Right upper quadrant ultrasound this was likely difficult study due to large body habitus and bowel gas. No cholelithiasis or ancillary imaging findings of acute cholecystitis. However sonogram sign is reported positive. This may reflect referred pain. No biliary ductal dilation. Repeat evaluation patient describes the pain has been going on for weeks sometimes generalized symptoms right upper quadrant. Chair decision making, event imaging was obtained. CT additionally displayed prominent fluid- filled small bowel loops in the lower abdomen. Right lower quadrant qualified for enteritis. Status post appendectomy moderate-sized fat-containing umbilical hernia measuring up to 3.3 cm. patient tolerating oral intake and room. Pt will be discharged will follow up with PCP as well as Dr. Hardy tomorrow. Will return to ED if condition worsens in anyway. Case discussed with Dr. Jorge. - Lab Data Result diagrams: 09/10/19 12:40 09/10/19 12:40 Lab Results 09/10/19 09/10/19 09/10/19 Range/Units 12:40 12:40 12:40 WBC 9.6 (3.8-10.6) k/uL RBC 4.81 (3.80-5.40) m/uL Hgb 14.3 (11.4-16.0) gm/dL Hct 45.6 (34.0-46.0) % MCV 94.9 (80.0-100.0) fL MCH 29.8 (25.0-35.0) pg MCHC 31.4 (31.0-37.0) g/dL RDW 13.7 (11.5-15.5) % Plt Count 233 (150-450) k/uL Neutrophils % 76 % Lymphocytes % 12 % Monocytes % 5 % Eosinophils % 6 % Basophils % 0 % Neutrophils # 7.3 (1.3-7.7) k/uL Lymphocytes # 1.1 (1.0-4.8) k/uL Monocytes # 0.5 (0-1.0) k/uL Eosinophils # 0.6 (0-0.7) k/uL Basophils # 0.0 (0-0.2) k/uL Sodium 138 (137-145) mmol/L Potassium 4.2 (3.5-5.1) mmol/L Chloride 105 (98-107) mmol/L Carbon Dioxide 28 (22-30) mmol/L Anion Gap 5 mmol/L BUN 9 (7-17) mg/dL Creatinine 0.76 (0.52-1.04) mg/dL Est GFR (CKD-EPI)AfAm >90 (>60 ml/min/1.73 sqM) Est GFR (CKD-EPI)NonAf >90 (>60 ml/min/1.73 sqM) Glucose 91 (74-99) mg/dL Plasma Lactic Acid Frank 0.9 (0.7-2.0) mmol/L Calcium 8.9 (8.4-10.2) mg/dL Total Bilirubin 0.7 (0.2-1.3) mg/dL AST 30 (14-36) U/L ALT 19 (4-34) U/L Alkaline Phosphatase 78 (38-126) U/L Total Protein 6.2 L (6.3-8.2) g/dL Albumin 3.5 (3.5-5.0) g/dL Lipase 116 (23-300) U/L Urine Color Urine Appearance (Clear) Urine pH (5.0-8.0) Ur Specific Stafford (1.001-1.035) Urine Protein (Negative) Urine Glucose (UA) (Negative) Urine Ketones (Negative) Urine Blood (Negative) Urine Nitrite (Negative) Urine Bilirubin (Negative) Urine Urobilinogen (<2.0) mg/dL Ur Leukocyte Esterase (Negative) Urine RBC (0-5) /hpf Urine WBC (0-5) /hpf Ur Squamous Epith Cells (0-4) /hpf Urine Bacteria (None) /hpf Urine Mucus (None) /hpf Urine HCG, Qual (Not Detectd) 09/10/19 09/10/19 Range/Units 12:44 12:44 WBC (3.8-10.6) k/uL RBC (3.80-5.40) m/uL Hgb (11.4-16.0) gm/dL Hct (34.0-46.0) % MCV (80.0-100.0) fL MCH (25.0-35.0) pg MCHC (31.0-37.0) g/dL RDW (11.5-15.5) % Plt Count (150-450) k/uL Neutrophils % % Lymphocytes % % Monocytes % % Eosinophils % % Basophils % % Neutrophils # (1.3-7.7) k/uL Lymphocytes # (1.0-4.8) k/uL Monocytes # (0-1.0) k/uL Eosinophils # (0-0.7) k/uL Basophils # (0-0.2) k/uL Sodium (137-145) mmol/L Potassium (3.5-5.1) mmol/L Chloride (98-107) mmol/L Carbon Dioxide (22-30) mmol/L Anion Gap mmol/L BUN (7-17) mg/dL Creatinine (0.52-1.04) mg/dL Est GFR (CKD-EPI)AfAm (>60 ml/min/1.73 sqM) Est GFR (CKD-EPI)NonAf (>60 ml/min/1.73 sqM) Glucose (74-99) mg/dL Plasma Lactic Acid Frank (0.7-2.0) mmol/L Calcium (8.4-10.2) mg/dL Total Bilirubin (0.2-1.3) mg/dL AST (14-36) U/L ALT (4-34) U/L Alkaline Phosphatase (38-126) U/L Total Protein (6.3-8.2) g/dL Albumin (3.5-5.0) g/dL Lipase (23-300) U/L Urine Color Yellow Urine Appearance Clear (Clear) Urine pH 5.5 (5.0-8.0) Ur Specific Stafford 1.020 (1.001-1.035) Urine Protein Negative (Negative) Urine Glucose (UA) Negative (Negative) Urine Ketones Negative (Negative) Urine Blood Moderate H (Negative) Urine Nitrite Negative (Negative) Urine Bilirubin Negative (Negative) Urine Urobilinogen <2.0 (<2.0) mg/dL Ur Leukocyte Esterase Negative (Negative) Urine RBC 22 H (0-5) /hpf Urine WBC 2 (0-5) /hpf Ur Squamous Epith Cells 1 (0-4) /hpf Urine Bacteria Rare H (None) /hpf Urine Mucus Rare H (None) /hpf Urine HCG, Qual Not Detected (Not Detectd) Disposition Clinical Impression: Abdominal pain Disposition: HOME SELF-CARE Condition: Stable Instructions (If sedation given, give patient instructions): Abdominal Pain (ED) Additional Instructions: Follow-up with primary care provider tomorrow. Follow-up with Dr. Conti tomorrow. Return to ED if condition worsens in anyway. Is patient prescribed a controlled substance at d/c from ED?: No Referrals: Binta Mcguire MD [Primary Care Provider] - 1-2 days Blake Hardy MD [Medical Doctor] - 1-2 days
--- NOTE | 2019-09-10 13:43 | US ---
EXAMINATION TYPE: US gallbladder DATE OF EXAM: 09/10/2019 COMPARISON: 08/15/2016 CLINICAL HISTORY: 33 year-old female right upper quadrant abdominal pain. TECHNIQUE: Multiple sonographic images of the right upper quadrant are obtained. FINDINGS: EXAM MEASUREMENTS: Liver Length: 12.3 cm Gallbladder Wall: 0.2 cm CBD: 0.2 cm Right Kidney: 10.3 x 4.5 x 5.1 cm Sledger notes: Morbidly obese patient, technically difficult study. Pancreas: Obscured by bowel gas Liver: wnl as seen, somewhat limited visualization Gallbladder: wnl Evidence for sonographic Trevino's sign: yes CBD: wnl Right Kidney: Inferior pole obscured by overlying bowel gas, wnl as seen without hydronephrosis IMPRESSION: 1. Technically difficult study due to large body habitus and bowel gas. 2. No cholelithiasis or ancillary imaging findings of acute cholecystitis. However, sonographic Gustavo y sign is reported positive. This may reflect referred pain. If further gallbladder evaluation is cielo ired, HIDA scan can be considered. 3. No biliary ductal dilatation.
[2019-09-10] MEDS ORDERED: SODIUM CHLORIDE 0.9% 1,000 ML IV ONE (14:09)
--- NOTE | 2019-09-10 15:19 | CT ---
EXAMINATION TYPE: CT abdomen pelvis w con DATE OF EXAM: 09/10/2019 COMPARISON: 07/23/2014 HISTORY: 33-year-old female RUQ pain, nausea, vomiting, diarrhea TECHNIQUE: Contiguous axial scanning of the abdomen and pelvis following administration of 100 ml Iso alexandra 300 IV contrast. Delayed images through the kidneys and coronal/sagittal reconstructions perform ed. CT DLP: 2978.4 mGycm Automated exposure control for dose reduction was used. FINDINGS: Heart normal size without pericardial effusion. Lung bases clear without pleural effusion. No focal liver lesion or biliary ductal dilatation. Portal venous system is patent. Gallbladder, adrenal glands, kidneys, spleen, pancreas appear within normal limits. No dilated small bowel, free fluid, or free air. Some prominent fluid-filled small bowel loops in th e lower abdomen. Moderate sized fatty umbilical hernia measuring 2.4 x 3.3 x 2.7 cm containing fat and some vessels. T his shows increase in size from 2014. There is a tiny hernia neck measuring 8 mm. No mesenteric or retroperitoneal lymphadenopathy. Surgical material in the right lower quadrant may relate to prior appendectomy and should be correlat ed clinically. Scattered mild stool. Minimal diverticular change along the left side of the colon Bladder partially distended. Uterus anteverted. Both ovaries are visualized. Trace cul-de-sac free fl uid probably physiologic. No pelvic lymphadenopathy seen. Bones: No osseous destructive process. IMPRESSION: 1. PROMINENT FLUID-FILLED SMALL BOWEL LOOPS IN THE LOWER ABDOMEN INCLUDING THE RIGHT LOWER QUADRANT. CORRELATE FOR ENTERITIS. 2. SOME SURGICAL MATERIAL IN THE RIGHT LOWER QUADRANT. QUERY PRIOR APPENDECTOMY. THE APPENDIX IS NOT DISCRETELY VISUALIZED. 3. MODERATE-SIZED FAT-CONTAINING UMBILICAL HERNIA MEASURING UP TO 3.3 CM EXTENDING THROUGH A TINY ABD OMINAL WALL DEFECT MEASURING 8 MM.
[2019-09-10 16:43] VITALS: BP 142/78; PULSE 72; TEMP 97.9
== END 2019-09-10 16:42 | disposition home or self-care (01) ==
LOC: EC 11:58
DX: R10.11 Right upper quadrant pain (principal); R11.2 Nausea with vomiting, unspecified; R19.7 Diarrhea, unspecified; K42.9 Umbilical hernia without obstruction or gangrene; J45.909 Unspecified asthma, uncomplicated; F41.9 Anxiety disorder, unspecified; F32.9 Major depressive disorder, single episode, unspecified; F17.200 Nicotine dependence, unspecified, uncomplicated; Z79.890 Hormone replacement therapy; Z88.5 Allergy status to narcotic agent
CPT/HCPCS: 36415; 80053; 83605; 83690; 85025; 81001; 81025; 76705; 74177; 99284; 96374; 96375; 96361; J2270; J2765; Q9967

== ENCOUNTER → 2019-10-06 | Outpatient (CLI) | payer OTHER ==
--- NOTE | 2019-10-06 10:25 | NM ---
EXAMINATION TYPE: NM hepatobiliary w EF DATE OF EXAM: 10/06/2019 COMPARISON: NONE INDICATION: Epigastric pain TECHNIQUE: After the intravenous administration of 5.4 mCi Tc 99m Mebrofenin hepatobiliary scintigrap hy is performed. Images were obtained immediately post injection. FINDINGS: There is prompt uptake and excretion of radiotracer by the liver. Extrahepatic ducts are identified at 6 minutes. The gallbladder is visualized within 6 minutes. Small bowel activity is noted within 22 minutes. At one hour 8 ounces of oral ensure plus is given to mimic CCK and gallbladder ejection fraction is c alculated at 81 %, which is slightly elevated. Consider biliary hyperkinesia within the differential . (Normal >35% and <80%.). IMPRESSION: 1. Biliary hyperkinesia with an ejection fraction of 81% may be present. 2. No obstruction evident.
== END | disposition home or self-care (01) ==
LOC: RADNMMAIN 07:13
PROVIDERS: ATTEND Family Medicine
DX: K83.8 Other specified diseases of biliary tract (principal)
CPT/HCPCS: 78226; A9537

== ENCOUNTER → 2019-11-03 | Day surgery (SDC) | payer OTHER ==
[2019-10-30 10:02] VITALS: BMI 46.2
[~2019-11-03] MED LIST: GLYCOPYRROLATE 0.2 MG/ML 2 ML VIAL ONE; LACTATED RINGERS 1,000 ML IV SCH; LIDOCAINE 1% (10MG/ML) FOR IV START INTRADERMA ONE; LIDOCAINE 1% INJ 10MG/ML (20 ML MDV) ONE; PROPOFOL 10 MG/ML 20 ML VIAL IV ONE
[2019-11-03 11:07] VITALS: TEMP 97.6
--- NOTE | 2019-11-03 11:33 | P.PCN ---
Date of Procedure: 11/03/19 Procedure(s) Performed: Preoperative Dx: Epigastric pain Postoperative Dx: Superficial gastric ulcer Procedure: EGD with Bx Anesthesia: Sedation Endoscopist: Dr. Hardy Specimens: Gastric ulcer Endoscopic Procedure: The patient was on the endoscopy table in the left decubitus position. The Olympus gastroscope was inserted into the oropharynx and passed under direct visualization to the region of the third portion of the duodenum. From that point the scope was slowly withdrawn inspecting all surfaces carefully. There were no neoplastic inflammatory or polypoid lesions throughout the duodenum. The pylorus was widely patent. The stomach was carefully inspected. There was a small superficial gastric ulcer in the prepyloric location. I will gastritis also present a biopsy of the ulcer itself took place. Retroflexion revealed a normal hiatus. The esophagus was then carefully examined. There were no neoplastic inflammatory or polypoid lesions throughout the visualized esophagus. The patient was then taken to the recovery room in stable condition per anesthesia guidelines. Recommendations: Await biopsy results. Increase antiacid therapy.
[2019-11-03 11:57] VITALS: BP 117/72; PULSE 84; RESP 16
== END ==
LOC: ORWHC2ENDO 10:54
PROVIDERS: ATTEND Surgery
DX: K25.9 Gastric ulcer, unspecified as acute or chronic, without hemorrhage or perforation (principal); J45.909 Unspecified asthma, uncomplicated; K21.9 Gastro-esophageal reflux disease without esophagitis; M79.7 Fibromyalgia; Z98.890 Other specified postprocedural states; F17.210 Nicotine dependence, cigarettes, uncomplicated; Z79.899 Other long term (current) drug therapy
CPT/HCPCS: 81025; 88305; 43239; J2001; J2704

== ENCOUNTER → 2019-12-19 | Outpatient (CLI) | payer OTHER | END | disposition home or self-care (01) | LOC: RADMRIMAIN 11:24 | PROVIDERS: ATTEND Family Medicine | DX: Z53.9 Procedure and treatment not carried out, unspecified reason (principal) ==

== ENCOUNTER 2019-12-21 08:36 | Day surgery (SDC) | payer OTHER ==
[2019-12-15 15:36] VITALS: BMI 45.7
[~2019-12-21 08:36] MED LIST changes: +ACETAMINOPHEN TAB 500 MG TAB PO ONE; +DEXAMETHASONE SOD PHOSPHATE 10 MG/ML 1 ML VIAL IV ONE; -GLYCOPYRROLATE 0.2 MG/ML 2 ML VIAL ONE; +HEPARIN SODIUM,PORCINE 5,000 UNIT/ML 1 ML VIAL SQ ONE; -LIDOCAINE 1% (10MG/ML) FOR IV START INTRADERMA ONE; +LIDOCAINE 1% (10MG/ML) FOR IV START INTRADERMA PRN; -LIDOCAINE 1% INJ 10MG/ML (20 ML MDV) ONE; +MIDAZOLAM 2 MG/2 ML VIAL IV PRN; +ONDANSETRON 4 MG/2 ML VIAL IVP ONE; -PROPOFOL 10 MG/ML 20 ML VIAL IV ONE; +ceFAZolin 3 GM in SODIUM CHLORIDE 0.9% 100 ML IVPB ONE
[2019-12-21] MEDS ORDERED: HEPARIN SODIUM,PORCINE 5,000 UNIT/ML 1 ML VIAL ONE (09:52)
[2019-12-21] MEDS ORDERED: ACETAMINOPHEN TAB 500 MG TAB ONE (09:52)
[2019-12-21] MEDS ORDERED: ONDANSETRON 4 MG/2 ML VIAL ONE (09:52)
[2019-12-21] MEDS ORDERED: SCOPOLAMINE 1.5MG/72HR PATCH TRANSDERM ONE (09:55)
[2019-12-21 09:58] LABS: Glucose,Whole Blood 78 mg/dL (75-99)
[2019-12-21] MEDS ORDERED: LIDOCAINE 1% INJ 10MG/ML (20 ML MDV) ONE (10:09)
[2019-12-21] MEDS ORDERED: PROPOFOL 10 MG/ML 20 ML VIAL IV ONE (10:09)
[2019-12-21] MEDS ORDERED: GLYCOPYRROLATE 0.2 MG/ML 2 ML VIAL ONE (10:09)
[2019-12-21] MEDS ORDERED: ROCURONIUM BROMIDE 10 MG/ML 5 ML VIAL IV ONE (10:09)
[2019-12-21] MEDS ORDERED: NEOSTIGMINE 1 MG/ML 10 ML VIAL ONE (10:09)
[2019-12-21] MEDS ORDERED: HYDROmorphone (PF) 1 MG/ML ONE (10:09)
[2019-12-21] MEDS ORDERED: MIDAZOLAM 2 MG/2 ML VIAL ONE (10:09)
[2019-12-21] MEDS ORDERED: SUCCINYLCHOLINE CHLORIDE 100 MG/5 ML SYR IV ONE (10:09)
[2019-12-21] MEDS ORDERED: fentaNYL (PF) 50 MCG/ML 2 ML AMP ONE (10:09)
[2019-12-21 10:10] LABS: HCT 39.7 % (34.0-46.0); HGB 12.6 gm/dL (11.4-16.0); MCH 29.6 pg (25.0-35.0); MCHC 31.6 g/dL (31.0-37.0); MCV 93.6 fL (80.0-100.0); Mean Platelet Volume 8.8; Platelet Count 170 k/uL (150-450); RBC 4.24 m/uL (3.80-5.40); RDW 13.3 % (11.5-15.5); WBC 6.2 k/uL (3.8-10.6)
--- NOTE | 2019-12-21 10:12 | P.GSHP ---
History of Present Illness H&P Date: 12/21/19 Chief Complaint: Incarcerated umbilical hernia 34-year-old female known to our service. Please refer to H&P from 2-3 months ago. Patient has complaints of pain at the umbilicus. Points to a location just above into the right of the umbilicus. CAT scan shows an incarcerated hernia there. Narrow neck on CAT scan. Containing fat without bowel. Some nausea and vomiting at times. Some radiation of the pain to the back. No history of previous hernia. Past Medical History Past Medical History: Asthma, GERD/Reflux, Pneumonia Additional Past Medical History / Comment(s): Chronic back pain , ASTHMA WHEN YOUNGER, BRONCHITIS, HYPOGLYEMIA,DDD, BLEEDING ULCER IN PAST, N/V, epigastric pain History of Any Multi-Drug Resistant Organisms: None Reported Past Surgical History: Appendectomy, Section Additional Past Surgical History / Comment(s): EGD Past Anesthesia/Blood Transfusion Reactions: No Reported Reaction Additional Past Anesthesia/Blood Transfusion Reaction / Comment(s): CLAUSTROPHOBIC Smoking Status: Current every day smoker - Past Family History Father Family Medical History: Unable to Obtain Mother Family Medical History: Fibromyalgia, Rheumatoid Arthritis (RA) Additional Family Medical History / Comment(s): DDD, CARPAL TUNNEL. PARATYROID REMOVED Medications and Allergies Home Medications Medication Instructions Recorded Confirmed Type Albuterol Inhaler [Ventolin Hfa 2 puff INHALATION RT-Q6H PRN 09/10/19 12/21/19 History Inhaler] DULoxetine HCL [Cymbalta] 60 mg PO HS 09/10/19 12/21/19 History Omeprazole [PriLOSEC] 20 mg PO AC-BRKFST #90 cap 11/03/19 12/21/19 Rx Sucralfate [Carafate] 1 gm PO ACHS #120 tab 11/03/19 12/21/19 Rx Ergocalciferol [Vitamin D2] 50,000 unit PO Q7D 12/15/19 12/21/19 History Allergies Allergy/AdvReac Type Severity Reaction Status Date / Time morphine AdvReac Itching Verified 12/21/19 09:17 Surgical - Exam Vital Signs Temp Pulse Resp BP Pulse Ox 98.5 F 76 18 121/79 100 12/21/19 10:04 12/21/19 10:04 12/21/19 10:04 12/21/19 10:04 12/21/19 10:04 Physical exam: General: Well-developed, well-nourished HEENT: Normocephalic, sclerae nonicteric Abdomen: Mildly tender hernia just above into the right of the umbilicus no nreducible, nondistended Extremities: No edema Neuro: Alert and oriented Results - Labs 12/21/19 09:49 Assessment and Plan (1) Incarcerated umbilical hernia Narrative/Plan: Will proceed with repair incarcerated umbilical hernia with possible mesh at this time. Risks of bleeding, infection, recurrence, bladder and bowel injury, numbness, nerve injury, were discussed with the patient. The patient understands and wishes to proceed. Current Visit: Yes Status: Acute Code(s): K42.0 - UMBILICAL HERNIA WITH OBST RUCTION, WITHOUT GANGRENE SNOMED Code(s): 014942276
[2019-12-21] MEDS ORDERED: BUPIVACAINE (PF) 0.25% 30 ML VIAL SQ ONE ×2 (10:36→11:11)
[2019-12-21] MEDS ORDERED: LACTATED RINGERS 1,000 ML IV ONE (11:09)
[2019-12-21] MEDS ORDERED: HYDROcodone/APAP 5-325MG 1 EACH TAB PO PRN (11:16)
[2019-12-21] MEDS ORDERED: NALOXONE 0.4 MG/ML 1 ML VIAL IV PRN (11:16)
--- NOTE | 2019-12-21 11:19 | P.OP ---
Date of Procedure: 12/21/19 Procedure(s) Performed: PREOPERATIVE DIAGNOSIS: Incarcerated umbilical hernia POSTOPERATIVE DIAGNOSIS: Same PROCEDURE: Incarcerated umbilical herniorrhaphy with mesh SURGEON: Hayley EBL: Minimal ANESTHESIA: General COMPLICATIONS: None OPERATIVE PROCEDURE: The patient was placed in the operating table in the supine position. A curvilinear supraumbilical moderate sized incision was made using the scalpel. The subcutaneous tissues were dissected using electrocautery. The patient's abdominal wall was impressively thick. As we reached the fascia the base of the umbilicus was identified. This was dissected and the hernia was seen. The defect was 1 cm in size. The preperitoneal space was bluntly diss ected. The 4.3 cm ventral ex mesh was placed beneath the fascia and sutured to the fascia using trans-fascial 0 Ethibond sutures. The defect was then closed using [id number] 0 Ethibond sutures. The subcutaneous tissues were reapproximated using inverted 2-0 and 3-0 Vicryl sutures. The umbilicus was tacked back down to the fascia using a 3-0 Vicryl suture. The skin was closed using 4-0 Monocryl sutures. Skin glue and sterile dressings were then applied. DISPOSITION: Stable to recovery room
[2019-12-21] MEDS: HYDROmorphone 0.5 MG/0.5 ML SYRINGE IVP PRN ×4 (11:28→11:48)
[2019-12-21 11:41] VITALS: TEMP 97.6
[2019-12-21] MEDS ORDERED: MEPERIDINE 50 MG/ML SYRINGE IVP ONE ×2 (12:00→12:39)
[2019-12-21 12:07] VITALS: RESP 18
[2019-12-21 13:44] VITALS: BP 126/80; PULSE 83
== END 2019-12-21 14:00 | disposition home or self-care (01) ==
LOC: OR 08:36
PROVIDERS: ATTEND Surgery
DX: K42.0 Umbilical hernia with obstruction, without gangrene (principal); J45.909 Unspecified asthma, uncomplicated; K21.9 Gastro-esophageal reflux disease without esophagitis; F17.210 Nicotine dependence, cigarettes, uncomplicated; E16.2 Hypoglycemia, unspecified; F40.240 Claustrophobia; M54.9 Dorsalgia, unspecified; G89.29 Other chronic pain; Z88.5 Allergy status to narcotic agent; Z79.899 Other long term (current) drug therapy; Z87.01 Personal history of pneumonia (recurrent); Z90.49 Acquired absence of other specified parts of digestive tract; Z98.891 History of uterine scar from previous surgery; Z82.61 Family history of arthritis; Z82.69 Family history of other diseases of the musculoskeletal system and connective tissue
CPT/HCPCS: 81025; 85027; 49587; C1781; J2250; J1644; J1100; J2710; J2175; J0690; J2405; J2001; J3010; J1170 ×2; J0330; J2704

== ENCOUNTER 2021-02-23 18:14 | Emergency (ER) | payer OTHER ==
[2021-02-23 18:36] VITALS: TEMP 98.1
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
[2021-02-23 22:11] VITALS: BP 103/69; PULSE 77; RESP 20
== END 2021-02-23 22:20 | disposition home or self-care (01) ==
LOC: EC 18:14
DX: S09.90XA Unspecified injury of head, initial encounter (principal); F12.90 Cannabis use, unspecified, uncomplicated; Z88.5 Allergy status to narcotic agent; W22.8XXA Striking against or struck by other objects, initial encounter
CPT/HCPCS: 70450; 99283

== ENCOUNTER 2021-03-03 11:36 | Emergency (ER) | payer OTHER ==
[2021-03-03 11:48] VITALS: BP 134/80; PULSE 75; RESP 18; TEMP 97.7
[2021-03-03] MEDS ORDERED: KETOROLAC 15 MG/ML 1 ML VIAL IM STA (12:51)
[2021-03-03] MEDS ORDERED: ORPHENADRINE 30 MG/ML 2 ML VIAL IM STA (12:51)
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
== END 2021-03-03 13:06 | disposition home or self-care (01) ==
LOC: EC 11:36
DX: S39.012A Strain of muscle, fascia and tendon of lower back, initial encounter (principal); J45.909 Unspecified asthma, uncomplicated; F41.9 Anxiety disorder, unspecified; F32.9 Major depressive disorder, single episode, unspecified; F17.200 Nicotine dependence, unspecified, uncomplicated; F12.90 Cannabis use, unspecified, uncomplicated; Z72.89 Other problems related to lifestyle
CPT/HCPCS: 99283 ×2; 96372 ×3; J2360; J1885

== ENCOUNTER 2023-06-25 19:15 | Emergency (ER) | payer OTHER ==
[2023-06-25 20:28] VITALS: TEMP 98
[2023-06-25] MEDS ORDERED: KETOROLAC 15 MG/ML 1 ML VIAL IM STA (20:42)
--- NOTE | 2023-06-25 20:42 | ED ---
Back Pain HPI - General Chief Complaint: Back Pain/Injury Stated Complaint: back pain Time Seen by Provider: 06/25/23 19:45 Source: patient Limitations: no limitations - History of Present Illness Initial Comments: 37-year-old female presenting to the ED with a chief complaint of back pain. Patient states yesterday, twisted wrong and "threw her back out". Since then, patient reports ongoing back pain. Denies saddle anesthesia or incontinence. Denies urinary symptoms. No chest pain or shortness of breath. No other complaints at this time. - Related Data Previous Rx's Medication Instructions Recorded Cyclobenzaprine [Flexeril] 10 mg PO TID #20 tab 03/03/21 Ketorolac [Toradol] 10 mg PO Q6HR #15 tab 03/03/21 Acetaminophen Tab [Tylenol] 500 mg PO Q6H PRN #60 tablet 06/25/23 Cyclobenzaprine [Flexeril] 10 mg PO TID PRN #15 tab 06/25/23 Ibuprofen [Motrin] 600 mg PO Q8HR PRN #30 tab 06/25/23 Allergies Allergy/AdvReac Type Severity Reaction Status Date / Time morphine AdvReac Itching Verified 06/25/23 19:36 Review of Systems ROS Statement: Those systems with pertinent positive or pertinent negative responses have been documented in the HPI. ROS Other: All systems not noted in ROS Statement are negative. Past Medical History Past Medical History: Asthma, GERD/Reflux, Pneumonia Additional Past Medical History / Comment(s): Chronic back pain , ASTHMA WHEN YOUNGER, BRONCHITIS, HYPOGLYEMIA,DDD, BLEEDING ULCER IN PAST, N/V, epigastric pain History of Any Multi-Drug Resistant Organisms: None Reported Past Surgical History: Appendectomy, Section Additional Past Surgical History / Comment(s): EGD, umbilical hernia repair with mesh. Past Anesthesia/Blood Transfusion Reactions: No Reported Reaction Additional Past Anesthesia/Blood Transfusion Reaction / Comment(s): CLAUSTROPHOBIC Past Psychological History: Anxiety, Depression Smoking Status: Current every day smoker, Vaper Past Alcohol Use History: Rare Past Drug Use History: Marijuana - Past Family History Father Family Medical History: Unable to Obtain Mother Family Medical History: Fibromyalgia, Rheumatoid Arthritis (RA) Additional Family Medical History / Comment(s): DDD, CARPAL TUNNEL. PARATYROID REMOVED General Exam Limitations: no limitations General appearance: alert, in no apparent distress Head exam: Present: atraumatic, normocephalic Eye exam: Present: normal appearance Neck exam: Present: normal inspection Respiratory exam: Present: normal lung sounds bilaterally Cardiovascular Exam: Present: regular rate, normal rhythm GI/Abdominal exam: Present: soft Extremities exam: Present: other (Strength and sensation equal and intact in bilateral lower extremities.) Back exam: Present: other (Left-sided lumbar and thoracic paraspinal tenderness to palpation. No midline cervical spinal tenderness to palpation.) Neurological exam: Present: alert, oriented X3 Skin exam: Present: warm, dry Course Vital Signs 06/25/23 19:31 Temperature 98.0 F Pulse Rate 81 Respiratory 20 Rate Blood Pressure 116/76 O2 Sat by Pulse 99 Oximetry Medical Decision Making - Medical Decision Making Was pt. sent in by a medical professional or institution (, PA, GROUND OPERATIONS SUPERVISOR, urgent care, hospital, or [place] health care facility...) When possible be specific @ -No Did you speak to anyone other than the patient for history (EMS, parent, family, police, friend...)? What history was obtained from this source @ -No Did you review nursing and triage notes (agree or disagree)? Why? @ -I reviewed and agree with nursing and triage notes Were old charts reviewed (outside hosp., previous admission, EMS record, old EKG, old radiological studies, urgent care reports/EKG's, [place] [facility] care facility records)? Report findings @ -No old charts were reviewed Differential Diagnosis (chest pain, altered mental status, abdominal pain women, abdominal pain men, vaginal bleeding, weakness, fever, dyspnea, syncope, headache, dizziness, GI bleed, back pain, seizure, CVA, palpatations, mental health, musculoskeletal)? @ -Differential Musculoskeletal Muscular strain, contusion, ligament sprain, fracture, arthritis, septic arthritis, bursitis, cellulitis, muscle spasm, nerve compression, DVT, arterial occlusion, herpes zoster, electrolyte abnormality, tumor.... This is not meant to be in all inclusive list EKG interpreted by me (3pts min.). @ -As above X-rays interpreted by me (1pt min.). @ -X-ray of the lumbar and thoracic spine interpreted by me showing no evidence of acute process. Does show degenerative changes. CT interpreted by me (1pt min.). @ -None done U/S interpreted by me (1pt. min.). @ -None done What testing was considered but not performed or refused? (CT, X-rays, U/S, labs)? Why? @ -None What meds were considered but not given or refused? Why? @ -None Did you discuss the management of the patient with other professionals (professionals i.e. , PA, GROUND OPERATIONS SUPERVISOR, lab, RT, psych nurse, social organization professor, instrumentation chemist, teacher, sustainability officer, case folder)? Give summary @ -No Was smoking cessation discussed for >3mins.? @ -No Was critical care preformed (if so, how long)? @ -No Were there social determinants of health that impacted care today? How? (Homelessness, low income, unemployed, alcoholism, drug addiction, transportation, low edu. Level, literacy, decrease access to med. care, correction, rehab)? @ -No Was there de-escalation of care discussed even if they declined (Discuss DNR or withdrawal of care, Hospice)? DNR status @ -No What co-morbidities impacted this encounter? (DM, HTN, Smoking, COPD, CAD, Cancer, CVA, ARF, Chemo, Hep., AIDS, mental health diagnosis, sleep apnea, morbid obesity)? @ -Obesity Was patient admitted / discharged? Hospital course, mention meds given and route, prescriptions, significant lab abnormalities, going to OR and other pertinent info. @ -Discharge 37-year-old female presenting to the ED with a chief complaint of back pain. States yesterday she twisted and "threw her back out". On exam she has full strength and sensation of bilateral lower extremities. Patient denies saddle anesthesia or incontinence. Imaging did not reveal any acute process however did show degenerative changes. Symptoms likely musculoskeletal in nature. Patient noted that she previously followed with [facility]. Advised to follow-up with them. Provided prescription for Flexeril, ibuprofen, Tylenol. At this time vital signs stable and afebrile. Discharged home in stable condition. Discussed return precautions with patient and family who verbalized agreement. Undiagnosed new problem with uncertain prognosis? @ -No Drug Therapy requiring intensive monitoring for toxicity (Heparin, Nitro, Insulin, Cardizem)? @ -No Were any procedures done? @ -No Diagnosis/symptom? @ -Back pain Acute, or Chronic, or Acute on Chronic? @ -Acute Uncomplicated (without systemic symptoms) or Complicated (systemic symptoms)? @ -Uncomplicated Side effects of treatment? @ -No Exacerbation, Progression, or Severe Exacerbation? @ -No Poses a threat to life or bodily function? How? (Chest pain, [place], [place], pneumonia, PE, COPD, DKA, ARF, appy, cholecystitis, CVA, Diverticulitis, Homicidal, Suicidal, threat to staff... and all critical care pts) @ -No Disposition Clinical Impression: Back pain Disposition: HOME SELF-CARE Condition: Good Instructions (If sedation given, give patient instructions): Acute Low Back Pain (ED) Additional Instructions: Please return to the Emergency Department if symptoms worsen or any other concerns. Please follow-up with your primary care provider or [facility]. Prescriptions: Cyclobenzaprine [Flexeril] 10 mg PO TID PRN #15 tab PRN Reason: Muscle Spasm Ibuprofen [Motrin] 600 mg PO Q8HR PRN #30 tab PRN Reason: Pain Acetaminophen Tab [Tylenol] 500 mg PO Q6H PRN #60 tablet PRN Reason: Pain Is patient prescribed a controlled substance at d/c from ED?: No Referrals: Binta Mcguire MD [Primary Care Provider] - 1-2 days Time of Disposition: 21:34
--- NOTE | 2023-06-25 21:15 | XR ---
EXAMINATION TYPE: XR thoracic spine 3V DATE OF EXAM: 06/25/2023 9:03 PM CLINICAL INDICATION:Female, 37 years old with history of r/o fx; [facility] COMPARISON: None. TECHNIQUE: 3 views of the thoracic spine. FINDINGS: No evidence of acute fracture. There is scattered multilevel disk space narrowing without loss of ve rtebral body height. There is normal alignment of the thoracic vertebral bodies. Scattered osteophyte formation along the anterior and lateral aspects of the vertebral bodies. IMPRESSION: No acute osseous pathology.
--- NOTE | 2023-06-25 21:16 | XR ---
EXAMINATION TYPE: XR lumbar spine 2 or 3V DATE OF EXAM: 06/25/2023 9:03 PM CLINICAL INDICATION:Female, 37 years old with history of r/o fx; [facility] COMPARISON: None TECHNIQUE: FINDINGS: No evidence of any acute osseous pathology. No evidence of loss of vertebral body height i s seen. There is normal alignment of the lumbar vertebral bodies. Mild scattered disc space narrowing . Multilevel marginal osteophyte formation throughout the visualized spine. There is facet joint arth ropathy throughout the spine. Postsurgical clips are present in the right lower quadrant IMPRESSION: 1. No acute fracture. 2. Mild multilevel disc degeneration.
[2023-06-25] MEDS ORDERED: CYCLOBENZAPRINE 10MG STARTER 3 TAB BTL PO STA (21:27)
[2023-06-25] MEDS ORDERED: ORPHENADRINE 30 MG/ML 2 ML VIAL IM STA (21:27)
[2023-06-25] MEDS ORDERED: IBUPROFEN 600 MG STARTER PACK 4 TAB BTL PO STA (21:27)
[2023-06-25 22:20] VITALS: BP 119/84; PULSE 72; RESP 18
== END 2023-06-25 22:01 | disposition home or self-care (01) ==
LOC: EC 19:15
DX: M51.36 Other intervertebral disc degeneration, lumbar region (principal); J45.909 Unspecified asthma, uncomplicated; E66.9 Obesity, unspecified; F17.290 Nicotine dependence, other tobacco product, uncomplicated; F12.90 Cannabis use, unspecified, uncomplicated; Z68.42 Body mass index [BMI] 45.0-49.9, adult; Z88.5 Allergy status to narcotic agent; X50.1XXA Overexertion from prolonged static or awkward postures, initial encounter
CPT/HCPCS: 99283; 96372 ×2; 72070; 72100; J2360; J1885